=== PATIENT | female | born 1980 ===

== ENCOUNTER → 2016-11-11 20:08 | Observation (INO) ==
[2016-11-11 18:13] LABS: Basophils % 0.2 %; Eosinophils # 0.2 K/mcL (0.0-0.6); Eosinophils % 1.6 %; Hematocrit 35.7 % (35.3-44.9); Hemoglobin 11.7 g/dL (11.5-15.4); Lymphocytes # 2.2 K/mcL (0.6-4.6); Lymphocytes % 21.8 %; Mean Corpuscular HGB Conc 32.8 g/dL (31.6-35.5); Mean Corpuscular Hemoglobin 28.1 pg (28.0-33.3); Mean Corpuscular Volume 85.8 fL (83.0-100.0); Mean Platelet Volume 10.9 fL (9.4-12.4); Monocytes # 0.7 K/mcL (0.0-1.3); Monocytes % 6.4 %; Platelet Count 154 K/mcL (140-400); Red Blood Count 4.16 M/mcL (3.82-4.97); Red Cell Distribution Width 15.2 % (11.5-14.5)
[2016-11-11 18:34] LABS: Alanine Aminotransferase 15 Units/L (0-55); Aspartate Amino Transferase 15 Units/L (5-34); BUN/Creatinine Ratio 10 (6-26); Blood Urea Nitrogen 6 mg/dL (7-20); Lactate Dehydrogenase 158 Units/L (159-327); eGFR For African Americans > 60 (> 60); eGFR For Non-African Americans > 60 (> 60)
[2016-11-11 19:48] LABS: Creatinine,Urine 43 mg/dL; Protein/Creatinine Ratio,Urine 0.16 mg/mg (0-0.20)
[2016-11-11 19:49] LABS: Amphetamine Screen,Urine Negative ng/mL (Cutoff=1000); Barbiturate Screen,Urine Negative ng/mL (Cutoff=200); Benzodiazepines Screen,Urine Negative ng/mL (Cutoff=200); Cannabinoid Screen,Urine Negative ng/mL (Cutoff = 50); Cocaine Screen,Urine Negative ng/mL (Cutoff= 300); Opiate Screen,Urine Negative ng/mL (Cutoff=300); Phencyclidine Screen,Urine Negative ng/mL (Cutoff=25)
--- NOTE | 2016-11-11 20:02 | OB/GYN Progress Note ---
Date of Encounter: 11/11/16 Time of Encounter: 20:00 - Assessment and Plan (1) 30 weeks gestation of Current Visit: Yes Status: Acute (2) Gestational hypertension Current Visit: Yes Status: Acute Labs WNL. BP's labile with the majority in mild range. Discharge home with precautions. Pt to picker tender labetalol rx and start tonight. POC per Dr. Beavers. Qualifiers: Trimester: third trimester Qualified Code(s): O13.3 - Gestational [ -induced] hypertension without significant proteinuria, third trimester Subjective - Subjective Interval history: 36 year-old presenting at 30w5d from office for elevated blood pressure. She denies MCKEON, vision changes, RUQ pain, or other complaints. Good FM. Antepartum ROS: movement normal, no loss of fluid, no vaginal bleeding, no contractions Objective - Vital Signs Vital Signs: Intake and Output 11/11/16 11/11/16 11/11/16 07:59 15:59 23:59 Other: Weight 102.7 kg Patient Weight 11/11/16 23:59 Weight 102.7 kg - Exam FHR: category 1 FHR comments: FHT reassuring for GA Abdomen: Present: soft, gravid. Absent: tenderness Uterus: Absent: tenderness Comments: Reflexes normal. - Labs Labs: Abnormal lab results RDW 15.2 % (11.5-14.5) H 11/11/16 18:00 BUN 6 mg/dL (7-20) L 11/11/16 18:00 Lactate Dehydrogenase 158 Units/L (159-327) L 11/11/16 18:00
== END | disposition home or self-care (01) ==
LOC: 1NENULAB
PROVIDERS: ADMIT Obstetrics & Gynecology; ATTEND Obstetrics & Gynecology

== ENCOUNTER 2016-12-30 11:13 | Inpatient (IN) ==
[2016-12-30 11:41] LABS: Basophils % 0.5 %; Eosinophils # 0.1 K/mcL (0.0-0.6); Hematocrit 35.5 % (35.3-44.9); Hemoglobin 11.9 g/dL (11.5-15.4); Immature Granulocytes % 0.6 % (0-4); Lymphocytes % 23.4 %; Mean Corpuscular HGB Conc 33.5 g/dL (31.6-35.5); Mean Corpuscular Hemoglobin 28.9 pg (28.0-33.3); Mean Corpuscular Volume 86.2 fL (83.0-100.0); Monocytes # 0.5 K/mcL (0.0-1.3); Monocytes % 6.2 %; Neutrophils # 5.9 K/mcL (1.6-8.9); Platelet Count 146 K/mcL (140-400); Red Blood Count 4.12 M/mcL (3.82-4.97); Red Cell Distribution Width 14.2 % (11.5-14.5); Segmented Neutrophils % 68.3 %
[2016-12-30 11:42] LABS: Bilirubin,Urine Negative (Negative); Blood,Urine Negative (Negative); Clarity,Urine Cloudy (Clear); Color,Urine Yellow (Yellow); Glucose,Urine (UA) Normal (Normal); Ketones,Urine Negative (Negative); Leukocyte Esterase,Urine Trace (Negative); Nitrite,Urine Negative (Negative); PH,Urine 6.5 pH Units (5.0-8.0); Protein,Urine Negative (Neg-Trace); Urobilinogen,Urine Normal (Normal)
[2016-12-30 11:44] LABS: Bacteria,Urine Few per hpf (None-Few); Hyaline Casts,Urine None Seen per lpf (None-Few); RBC,Urine 0-3 per hpf (0-3); Squamous Epithelial Cell,Urine Many per lpf (None-Few)
[2016-12-30 11:57] LABS: Alanine Aminotransferase 11 Units/L (0-55); Aspartate Amino Transferase 17 Units/L (5-34); BUN/Creatinine Ratio 9 (6-26); Blood Urea Nitrogen 5 mg/dL (7-20); Lactate Dehydrogenase 190 Units/L (159-327); Uric Acid 4.8 mg/dL (2.6-6.0); eGFR For African Americans > 60 (> 60); eGFR For Non-African Americans > 60 (> 60)
[2016-12-30] MEDS ORDERED: *HR* Labetalol 20 MG/4 ML SYRINGE IVP ONE ×3 (12:11→13:01)
[2016-12-30] MEDS ORDERED: Ringers Solution, Lactated 1,000 ML ONE (12:15)
--- NOTE | 2016-12-30 12:26 | OB/GYN History & Physical ---
Date of Encounter: 12/30/16 Time of Encounter: 12:19 Assessment and Plan (1) Gestational hypertension Current visit: No Status: Acute Prolonged monitoring PIH labs - wnl Urine protein creatinine ratio - pending NST - reactive Serial blood pressures - elevated. Will start IV labetalol per ACOG recommendations. Admit for IOL vs stabilize and discharge with increase antihypertensives POC per consult with Dr Gonzalez. Qualifiers: Trimester: third trimester Qualified Code(s): O13.3 - Gestational [ -induced] hypertension without significant proteinuria, third trimester (2) 37 weeks gestation of Current visit: Yes Status: Acute History of Present Illness Chief complaint: Elevated blood pressure HPI: Ms. Gonzalez is a 36 year old at 37 weeks 5 days gestation that presents from the office to labor and delivery for a gestational hypertension evaluation. Her blood pressure in the office was 146/92 followed by 168/96. She denies headache, vision changes, and epigastric pain. She states good movement. She denies leaking of fluid, pain, vaginal bleeding, cramping, and contractions. She does have a history of gestational hypertension with good control until today on labetalol 200mg TID po. She has been taking her labetalol as scheduled. She is also of advanced maternal age. She had a leep procedure completed on her cervix in December of 2015. She has no other risk factors with this . Labs: GBS negative Blood type A+ Antibody negative Hep B nonreactive Rubella immune Varicella immune RPR negative HIV negative Past Med Surg Social Fam HX - Past Medical History Medical history: no medical history Psychiatric history: anxiety - Past Surgical History Surgical History: other - Social History Smoking Status: Never smoker Smokeless Tobacco Status: No Alcohol use: none Drug use: none - Family History Mother History Unknown: Yes Living Status: Still Living Hx Family Endocrine Disorder: Yes (diabetes) Obstetrical History - Pregnancies : 3 Para: 2 Term: 2 : 0 Ab's: 0 Livin Medications and Allergies Labetalol [Trandate] 200 mg PO TID 11/11/16 [History] Vit Calc,Iron,Folic [ Vitamins] 1 tab PO DAILY 11/11/16 [ History] Sertraline [Zoloft] 50 mg PO DAILY 11/11/16 [History] metFORMIN [Glucophage] 500 mg PO BIDWM 11/11/16 [History] 3 Allergy/AdvReac Type Severity Reaction Status Date / Time No Known Allergies Allergy Verified 11/11/16 17:58 Review of System OB All systems PM: reviewed and no additional remarkable complaints except as stated Exam - Constitutional Constitutional: well developed, well nourished, no acute distress - HEENT HEENT: Normocephaly, Mucus Membranes Moist - Lungs Respiratory exam: CTAB - Cardiovascular Cardiovascular exam: RRR, +S1, +S2 - Abdomen Abdomen: Present: bowel sounds normal, gravid, non tender - Extremities Extremities exam: normal capillary refill, normal inspection, radial pulses palpable and symmetrical Deep Tendon Reflex Grade: 3+ Normal But Brisk - Cervix Dilation: 3 (3-4 Per exam in office) Effacement: 90 Station: -1 - Uterus Uterus exam: Present: normal size, normal contour - Comments Comments: FHTs 130's category I tracing. No contractions per toco/patient report/ monitor. Results Result Diagrams: 12/30/16 11:30 12/30/16 11:30 Abnormal lab results BUN 5 mg/dL (7-20) L 12/30/16 11:30 Urine Clarity Cloudy (Clear) A 12/30/16 11:30 Ur Leukocyte Esterase Trace (Negative) H 12/30/16 11:30 Urine Microscopic WBC 5-15 per hpf (0-3) H 12/30/16 11:30 Ur Squamous Epith Cells Many per lpf (None-Few) H 12/30/16 11:30 All other labs normal. - VTE Reasons for not Prescribing Prophylaxis: Treatment not Indicated - Low risk for VTE
[2016-12-30 12:28] LABS: Amphetamine Screen,Urine Negative ng/mL (Cutoff=1000); Barbiturate Screen,Urine Negative ng/mL (Cutoff=200); Benzodiazepines Screen,Urine Negative ng/mL (Cutoff=200); Cannabinoid Screen,Urine Negative ng/mL (Cutoff = 50); Cocaine Screen,Urine Negative ng/mL (Cutoff= 300); Opiate Screen,Urine Negative ng/mL (Cutoff=300); Phencyclidine Screen,Urine Negative ng/mL (Cutoff=25)
[2016-12-30] MEDS: Ringers Solution, Lactated 1,000 ML IVC SCH ×2 (12:29→18:32)
[2016-12-30 12:46] LABS: Protein/Creatinine Ratio,Urine 0.25 mg/mg (0-0.20)
[2016-12-30] MEDS: *HR* Labetalol 20 MG/4 ML SYRINGE IVP ONE (13:02)
[2016-12-30] MEDS ORDERED: Oxytocin 20 units/ LR 1000 mL 20 UNIT/1,000 ML BAG IVC SCH (15:45)
[2016-12-30] MEDS ORDERED: Magnesium Sulfate 20 gm/500mL 20 GM/500 ML IV.SOLN IVC SCH (15:45)
[2016-12-30] MEDS ORDERED: Epidural Premix (fent/bupiv) 110 ML EP ONE ×2 (17:49→23:19)
[2016-12-30] MEDS ORDERED: Epidural Premix (fent/bupiv) 110 ML EP SCH (18:00)
--- NOTE | 2016-12-30 18:24 | Anesthesia Evaluation PreOp ---
Date of Encounter: 12/30/16 Time of Encounter: 18:22 - Past History Planned Operation: LUAN Cardiac History: Other (PIH on labetalol) Pulmonary History: Denies Any Significant HX INDIRECT SALES REPRESENTATIVE History: Denies Any Significant HX Other Medical History: Other (back pain and back "locking up") Anesthesia History: No Prior Anesthetic Complications Alcohol Use: none Drug use: none Medications and Allergies Labetalol [Trandate] 200 mg PO TID 11/11/16 [History] Vit Calc,Iron,Folic [ Vitamins] 1 tab PO DAILY 11/11/16 [ History] Sertraline [Zoloft] 50 mg PO DAILY 11/11/16 [History] metFORMIN [Glucophage] 500 mg PO BIDWM 11/11/16 [History] 3 Allergy/AdvReac Type Severity Reaction Status Date / Time No Known Allergies Allergy Verified 11/11/16 17:58 - Meds/Allergy Pre-op Review Medications Reviewed: Yes Allergies Reviewed: Yes Beta Blockers on Current Med List: Yes If Beta Blockers taken, Date/Time (Last Dose taken): 12/30 1344 Anesthesia Results - Labs 12/30/16 11:30 12/30/16 11:30 Anesthesia Exam Height: 1.75m Weight: 105kg NPO (# of Hours): 3 Pain Scale: 8 Pain Scale Used: Numeric (1 - 10) - HEENT Pupil (Motor): Pupils equal Mallampati: II Teeth: Normal Oral Opening: Greater than 3 - INDIRECT SALES REPRESENTATIVE LOC: Oriented INDIRECT SALES REPRESENTATIVE Motor: Normal RUE, Normal LUE, Normal RLE, Normal LLE, Normal Face INDIRECT SALES REPRESENTATIVE Sensory: Normal: RUE, LUE, RLE, LLE, Face - Cardiac Rhythm: Regular Murmur: None JVD: No Carotid Bruit: No - Pulmonary Breath Sounds: bilateral Clear Respiratory Effort: Symmetrical Anesthesia Assess/Plan ASA Score: 2 Modified Renetta Scale for Level of Consciousness: Cooperative, oriented, and tranquil Anesthetic Plan: General (plan b), Regional (plan a) Autologous Blood: Yes Monitoring Plan: Standard Monitors
--- NOTE | 2016-12-30 18:26 | Anesthesia Procedures ---
Date of Encounter: 12/30/16 Time of Encounter: 18:24 Procedures: Anesthesia - Epidural/Spinal Patient ID/Chart reviewed: Yes Patient examined: Yes OB Eval: Gestational age: 37.5 OB Eval: : 3 OB Eval: Hx Para: 2 OB Eval: Dilated at (cm): 3 OB Eval: Contractions: Non-stressed pattern Consent Obtained: Yes Supplemental Oxygen: None/Room Air Site Prep: Aseptic Technique, Sterile prep and drape, Povidone-Iodine 1% Patient position: upright Local Anesthetic: Lidocaine 1% Amount of Local Anesthetic used: 3 Touhy Needle Gauge: 18 Touhy Needle Depth (cm): 9 Catheter Depth at Skin (cm): 19 Test Dose (1.5% Lido + Epi): Volume given (mls): 5 Test Dose Result: Negative Loading Dose: Other: 10mls of epidural pharm bag premix solution Loading Dose Administered: Thru Catheter Infusion Med: 0.125% Bupivacaine w/ 2 mcg/ml Fentanyl Infusion Rate (mls/hr): 16 ([id number]) Catheter Secured in Place: Tegaderm, Tape Interspace Used: L3-L4 Loss of Resistance (PRINCESS): Yes Blood: No CSF: No Paresthesia: No Procedure: pt tolerated procedure well. no complications. vss. fhr stable. see qs for complete vitals. 162/87 hr 62 147/83 hr 66 fhr 140
[2016-12-30] MEDS ORDERED: Famotidine 20 MG/2 ML VIAL IVP PRN (19:27)
[2016-12-30] MEDS ORDERED: Acetaminophen 325 MG TABLET PO ONE (22:03)
--- NOTE | 2016-12-30 23:04 | OB Labor Progress Note ---
Date of Encounter: 12/30/16 Time of Encounter: 23:03 Labor Progress Note - Subjective Subjective: Pt comfortable with epidural. No MCKEON's. - Cervix Cervix: 490/-1 - Heart Tones Heart Tones: RNST - [place]: us's q 2 min - Plan Plan: RNST
--- NOTE | 2016-12-31 02:08 | OB/GYN Procedure Note ---
Delivery - Delivery Date: 12/31/16 Provider: Terrell Gonzalez Delivery induction: oxytocin Delivery monitor: external FHT, external uterine Anesthesia: epidural Estimated Blood Loss: 400 - Infant (s) A Infant Delivery Date: 12/31/16 Delivery Time: 01:16 Position: GARRET Route of delivery: Viability: Viable Pounds: 7 Ounces: 7 at 1 minute: 5 at 5 mins: 8 Shoulder Dystocia: not encountered Placenta: spontaneous Cord: 3 umbilical vessels - Repair Episiotomy: none Laceration Description: Perineal - 2nd Degree - Complications Delivery complications: none, other (Retained membranes) - Disposition Mom disposition: stable in LDR [place] disposition: stable in LDR - Comments Comments: Pt s/p without complications. 2nd degree laceration repaired with 3-0 Vicryl. Placenta delivered spontaneously though she did have some retained membranes that were manuallly extrated. Bimanual exam revealed no further membranes.
[2016-12-31] MEDS ORDERED: Rho Immune Globulin 1,500 UNIT SYRINGE IM PRN (02:36)
[2016-12-31] MEDS ORDERED: Oxytocin 20 units/ LR 1000 mL 20 UNIT/1,000 ML BAG IVC SCH (02:36)
[2016-12-31] MEDS ORDERED: Measles/Mumps/Rubella Vacc 0.5 ML VIAL SQ PRN (02:36)
[2016-12-31] MEDS: Magnesium Sulfate 20 gm/500mL 20 GM/500 ML IV.SOLN IVC SCH ×2 (05:00→14:04)
[2016-12-31] MEDS: Ringers Solution, Lactated 1,000 ML IVC SCH (05:48)
[2016-12-31] MEDS ORDERED: Calcium Gluconate 1,000 MG/10 ML VIAL IVPB ONE (06:01)
[2016-12-31] MEDS ORDERED: Ringers Solution, Lactated 1,000 ML ONE (07:32)
[2016-12-31] MEDS: Prenatal Vit/FA 1 EACH TABLET PO SCH (08:19)
[2016-12-31] MEDS: Acetaminophen 325 MG TABLET PO PRN (21:18)
[2017-01-01 04:28] LABS: Basophils # 0.1 K/mcL (0.0-0.2); Basophils % 0.5 %; Hematocrit 30.2 % (35.3-44.9); Immature Granulocytes % 0.4 % (0-4)
[2017-01-01 04:32] LABS: Alanine Aminotransferase 11 Units/L (0-55); Aspartate Amino Transferase 17 Units/L (5-34); BUN/Creatinine Ratio 8 (6-26); Lactate Dehydrogenase 241 Units/L (159-327); Uric Acid 5.3 mg/dL (2.6-6.0); eGFR For African Americans > 60 (> 60); eGFR For Non-African Americans > 60 (> 60)
[2017-01-01 04:33] LABS: Eosinophils # 0.2 K/mcL (0.0-0.6); Eosinophils % 1.8 %; Hemoglobin 10.3 g/dL (11.5-15.4); Immature Platelets 9.3 % (1.1-6.1); Lymphocytes # 2.7 K/mcL (0.6-4.6); Lymphocytes % 25.6 %; Mean Corpuscular HGB Conc 34.1 g/dL (31.6-35.5); Mean Corpuscular Hemoglobin 29.9 pg (28.0-33.3); Mean Corpuscular Volume 87.5 fL (83.0-100.0); Mean Platelet Volume 11.6 fL (9.4-12.4); Monocytes # 0.6 K/mcL (0.0-1.3); Monocytes % 5.4 %; Neutrophils # 7.1 K/mcL (1.6-8.9); Platelet Count 187 K/mcL (140-400); Red Blood Count 3.45 M/mcL (3.82-4.97); Red Cell Distribution Width 14.5 % (11.5-14.5); Segmented Neutrophils % 66.3 %
[2017-01-01 04:35] LABS: Blood Urea Nitrogen 4 mg/dL (7-20)
[2017-01-01] MEDS: Prenatal Vit/FA 1 EACH TABLET PO SCH (07:56)
[2017-01-01] MEDS: Acetaminophen 325 MG TABLET PO PRN ×3 (07:57→21:11)
--- NOTE | 2017-01-01 09:43 | OB/GYN Progress Note ---
Date of Encounter: 01/01/17 Time of Encounter: 09:30 - Assessment and Plan (1) Status post vaginal delivery Current Visit: Yes Status: Acute (2) Gestational hypertension Current Visit: Yes Status: Acute Patient's BP earlier today was 181/112. She was given her scheduled dose of labetalol and her BP dropped to 162/95. - Will administer an additional 100mg labetalol now and continue to monitor BP. - Continue scheduled labetalol. Qualifiers: Trimester: third trimester Qualified Code(s): O13.3 - Gestational [ -induced] hypertension without significant proteinuria, third trimester (3) Anxiety Current Visit: Yes Status: Chronic - Continue zoloft. Subjective - Subjective Principal diagnosis: gestational HTN, s/p vaginal delivery Interval history: Patient says that she is doing well and in good mood. She is currently breast and bottle feeding the baby. She has been able to ambulate well. No bowel movement yet but she has been able to pas gas. She has been able to void. She says her vaginal bleeding has been light to moderate and has been improving since the delivery. She denies any MCKEON, vision changes, fever, chills, SOB, chest pain, nausea, or vomiting. Patient reports: appetite normal, voiding normally, pain well controlled, ambulating normally [place]: doing well, nursing well, bottle feeding Objective - Latest Vital Signs Latest vital signs: Vital Signs Temp Pulse Resp BP Pulse Ox 01/01/17 09:13 162/95 01/01/17 08:03 98.3 F 66 16 181/112 95 01/01/17 04:05 97.6 F 73 14 164/92 96 01/01/17 01:10 65 16 163/85 01/01/17 01:00 97.9 F 71 14 159/81 97 01/01/17 00:02 70 16 160/100 12/31/16 23:05 68 14 146/88 12/31/16 23:00 97.8 F 69 16 156/85 98 12/31/16 22:15 68 146/88 12/31/16 22:10 69 16 148/91 12/31/16 21:10 71 16 166/91 12/31/16 21:05 65 16 167/96 12/31/16 20:00 68 16 146/82 98 12/31/16 19:05 98.0 F 67 16 154/80 97 12/31/16 19:00 98.0 F 73 16 156/97 97 12/31/16 18:12 74 16 148/89 12/31/16 17:20 67 18 164/95 12/31/16 16:30 64 18 159/92 12/31/16 15:07 69 18 172/98 12/31/16 15:04 69 18 172/98 12/31/16 14:05 68 16 154/89 12/31/16 13:11 64 16 142/86 12/31/16 12:06 64 16 153/88 Intake and Output 12/31/16 01/01/17 01/01/17 23:59 07:59 15:59 Intake Total 900 / 900 Output Total 1480 / 1480 370 / 370 Balance -1480 / -1480 530 / 530 Intake: IV Fluids 500 / 500 Magnesium Sulfate Premix 20 gm/ 500 / 500 500mL 20 gm In 500 ml @ 2 GM/HR 50 mls/hr IVC .Q10H SADIE Rx#: [id number] Oral 400 / 400 Output: Urine 1480 / 1480 370 / 370 - Exam Lungs: bilateral: normal Chest: Normal S1, Normal S2 Extremities: Present: normal. Absent: tenderness, edema Abdomen: Present: normal appearance, soft, gravid Uterus: Present: firm - Labs Labs: Laboratory Results - last 24 hr 01/01/17 01/01/17 03:54 03:54 WBC 10.7 RBC 3.45 L Hgb 10.3 L D Hct 30.2 L MCV 87.5 MCH 29.9 MCHC 34.1 RDW 14.5 Plt Count 187 MPV 11.6 Immature Gran % 0.4 Seg Neutrophils % 66.3 Lymphocytes % 25.6 Monocytes % 5.4 Eosinophils % 1.8 Basophils % 0.5 Neutrophils # 7.1 Lymphocytes # 2.7 Monocytes # 0.6 Eosinophils # 0.2 Basophils # 0.1 Immature Plt Fraction 9.3 H BUN 4 L Creatinine 0.51 L Est GFR ( Amer) > 60 Est GFR (Non-Af Amer) > 60 BUN/Creatinine Ratio 8 Uric Acid 5.3 AST 17 ALT 11 Lactate Dehydrogenase 241
[2017-01-01] MEDS: NIFEdipine XL (24 HR) 60 MG TAB.ER.24 PO SCH (13:32)
[2017-01-01] MEDS ORDERED: hydrALAZINE 25 MG TABLET PO ONE (17:45)
--- NOTE | 2017-01-01 17:50 | Internal Medicine Consult Note ---
<Luiz Corrales - Last Filed: 01/01/17 18:29> Date of Encounter: 01/01/17 Time of Encounter: 17:46 - Assessment and Plan (1) hypertension Current Visit: Yes Status: Acute Assessment and plan: Pt PIH labs pending Last LFT WNL Clinically low suspicion of evolving pre-ecclampsia Risk factors contributing to PIH: BMI>30, PCOS Continue Labetalol Continue Procardia XL Add Hydralazine 50mg PO one time stat, recheck and adjust antihypertensives in AM. Consider Lasix for mild volume overload, understand that patient wants to breastfeed. Pt agress to use Lasix if hydralazine does not reduce blood pressure readings. (2) Gestational hypertension Current Visit: Yes Status: Acute Assessment and plan: As above, persisting hypertension gestaionally through post- period. Qualifiers: Trimester: third trimester Qualified Code(s): O13.3 - Gestational [ -induced] hypertension without significant proteinuria, third trimester (3) Status post vaginal delivery Current Visit: Yes Status: Acute Assessment and plan: S/p , of baby girl Barbara Gonzalez. Internal Medicine - CN: HPI - Data of Consult Requesting Physician: Terrell Gonzalez MD - Consult Narrative Reason for consult: PIH/Post- Hypertension History of present illness: Ms. Gonzalez is a 36 year old female, , history of gestational hypertension, PCOS, no known CAD, no renal impairment, with chief complaint of persistent hypertension. Gestational hypertension was well-controlled throughout . Blood pressure readings remained elevated during active labor. Pt reports mild LE swelling. Pt denies headache, blurred vision, chest pain, shortness of breath, RUQ pain. Past Med Surg Social Fam HX - Past Medical History Medical history: no medical history Psychiatric history: anxiety - Past Surgical History Surgical History: other - Social History Smoking Status: Never smoker Smokeless Tobacco Status: No Alcohol use: none Drug use: none - Family History Mother History Unknown: Yes Living Status: Still Living Hx Family Endocrine Disorder: Yes (diabetes) - Cardiovascular Cardiovascular ROS IM: no chest pain, no dyspnea, no palpitations - Respiratory Respiratory: no dyspnea - Neurological Neurological ROS: no abnormal movements, no convulsions, no dizziness, no loss of vision, no vertigo, no other visual disturbances - Endocrine Endocrine IM: no flushing, no heat intolerance Internal Medicine - CN: Meds Labetalol [Trandate] 200 mg PO TID 11/11/16 [History] Vit Calc,Iron,Folic [ Vitamins] 1 tab PO DAILY 11/11/16 [ History] Sertraline [Zoloft] 50 mg PO DAILY 11/11/16 [History] metFORMIN [Glucophage] 500 mg PO BIDWM 11/11/16 [History] Breast Pump [BREAST PUMP] 1 each .ROUTE AD #1 each 01/01/17 [Rx] 3 Allergy/AdvReac Type Severity Reaction Status Date / Time No Known Allergies Allergy Verified 11/11/16 17:58 Internal Medicine - CN: Exam - Constitutional Vitals: Temp Pulse Resp BP Pulse Ox 98.3 F 66 16 176/100 95 01/01/17 08:03 01/01/17 08:03 01/01/17 08:03 01/01/17 17:00 01/01/17 08:03 General appearance IM: Present: A&O X 3, pleasant, no acute distress - Head Head exam: Present: atraumatic - Eye Eye exam: Present: EOMI - Respiratory Respiratory exam: Present: CTAB. Absent: respiratory distress - Cardiovascular Cardiovascular exam IM: Present: RRR, +S1, +S2 - GI/Abdominal Additional comments: no RUQ tenderness to palpation - Extremities Exam Additional comments: +1 pitting edema bilaterally - Neurological Exam Neurological exam: Present: oriented X3. Absent: facial droop, speech deficit Internal Medicine - CN: Reslt - Labs CBC & Chem 7: 01/01/17 03:54 01/01/17 03:54 Labs: Short CBC 01/01/17 Range/Units 03:54 WBC 10.7 (4.3-11.1) K/mcL Hgb 10.3 L D (11.5-15.4) g/dL Hct 30.2 L (35.3-44.9) % Plt Count 187 (140-400) K/mcL Neutrophils # 7.1 (1.6-8.9) K/mcL BMP 01/01/17 03:54 BUN 4 L Creatinine 0.51 L Liver Function 01/01/17 Range/Units 03:54 AST 17 (5-34) Units/L ALT 11 (0-55) Units/L Consult Discharge Plan - Plan Referrals: NONE,PCP [Primary Care Provider] - Prescriptions: Breast Pump [BREAST PUMP] 1 each .ROUTE AD #1 each <Kristian Martell - Last Filed: 01/01/17 19:03> Date of Encounter: 01/01/17 - Assessment and Plan (1) hypertension Current Visit: Yes Status: Acute Internal Medicine - CN: HPI - Data of Consult Requesting Physician: Terrell Gonzalez MD - Consult Narrative History of present illness: Ms. Gonzalez is a 36 year old female Internal Medicine - CN: Exam - Constitutional Vitals: Temp Pulse Resp BP Pulse Ox 98.3 F 66 16 176/100 95 01/01/17 08:03 01/01/17 08:03 01/01/17 08:03 01/01/17 17:00 01/01/17 08:03 Internal Medicine - CN: Reslt - Labs CBC & Chem 7: 01/01/17 03:54 01/01/17 03:54 Labs: Short CBC 01/01/17 Range/Units 03:54 WBC 10.7 (4.3-11.1) K/mcL Hgb 10.3 L D (11.5-15.4) g/dL Hct 30.2 L (35.3-44.9) % Plt Count 187 (140-400) K/mcL Neutrophils # 7.1 (1.6-8.9) K/mcL BMP 01/01/17 03:54 BUN 4 L Creatinine 0.51 L Liver Function 01/01/17 Range/Units 03:54 AST 17 (5-34) Units/L ALT 11 (0-55) Units/L - Attending Attestation I examined this patient and my medical decision-making was reviewed with the Resident Physician on 01/01/17. I agree with the documented findings, disposition and treatment plan as described except to the extent set forth below. 36 y/o female with HTN. Pt had HTN during but continues to be high despite treatment. No CP or SOB. No significant edema. No prior history. Exam Alert. Comfortable Heart reg Lungs clear Abd soft No significant edema I/P 1. HTN 2. Further diagnoses and plan as above.
[2017-01-02 06:46] LABS: Alanine Aminotransferase 13 Units/L (0-55); Aspartate Amino Transferase 16 Units/L (5-34); BUN/Creatinine Ratio 7 (6-26); Blood Urea Nitrogen 4 mg/dL (7-20); Lactate Dehydrogenase 224 Units/L (159-327); Uric Acid 4.9 mg/dL (2.6-6.0); eGFR For African Americans > 60 (> 60); eGFR For Non-African Americans > 60 (> 60)
[2017-01-02 07:00] LABS: Basophils # 0.1 K/mcL (0.0-0.2); Basophils % 0.6 %; Eosinophils # 0.3 K/mcL (0.0-0.6); Eosinophils % 2.7 %; Hemoglobin 10.7 g/dL (11.5-15.4); Immature Granulocytes % 0.6 % (0-4); Lymphocytes # 2.7 K/mcL (0.6-4.6); Mean Corpuscular HGB Conc 32.4 g/dL (31.6-35.5); Mean Corpuscular Volume 89.4 fL (83.0-100.0); Monocytes # 0.6 K/mcL (0.0-1.3); Monocytes % 5.8 %; Neutrophils # 7.1 K/mcL (1.6-8.9); Platelet Count 184 K/mcL (140-400); Red Blood Count 3.69 M/mcL (3.82-4.97); Red Cell Distribution Width 14.7 % (11.5-14.5); Segmented Neutrophils % 65.3 %
[2017-01-02] MEDS: Prenatal Vit/FA 1 EACH TABLET PO SCH (07:50)
[2017-01-02] MEDS: NIFEdipine XL (24 HR) 60 MG TAB.ER.24 PO SCH (07:51)
--- NOTE | 2017-01-02 08:26 | OB/GYN Progress Note ---
Date of Encounter: 01/02/17 Time of Encounter: 08:20 - Assessment and Plan (1) hypertension Current Visit: Yes Status: Acute (2) Status post vaginal delivery Current Visit: Yes Status: Acute will stop labetolol and try methyldopa if stable later today will discuss possible discharge Subjective - Subjective Interval history: patient without complaint this am no headache no scotoma no blurred vision, would like to go home, BP continues to be elevated, discussed stopping the Labetolol and switching to methyldopa, patient is also on Procardia 60XL and was given HCTZ yesterday, medicine had recommended lasix today if is elevated, I recommended not to do this since preeclamptics are volume restricted and lasix could actually make her BP worse, she has min edema at this time, Labs are all normal so recommended we try this other med and if BP stable through the day possible discharge later today Patient reports: appetite normal, voiding normally, pain well controlled, ambulating normally [place]: doing well Objective - Latest Vital Signs Latest vital signs: Vital Signs Temp Pulse Resp BP Pulse Ox 01/02/17 07:30 98.0 F 59 16 164/85 01/02/17 04:25 98.1 F 70 16 161/89 98 01/02/17 00:00 98.6 F 72 16 156/80 96 01/01/17 20:31 99.3 F 76 14 156/84 97 01/01/17 17:00 176/100 01/01/17 16:55 176/100 01/01/17 14:50 162/98 01/01/17 13:11 167/101 01/01/17 09:13 162/95 Intake and Output 01/01/17 01/02/17 01/02/17 23:59 07:59 15:59 Intake Total 500 / 500 1540 / 1540 Output Total 950 / 950 1999 / 1999 Balance -450 / -450 -460 / -460 Intake: Oral 500 / 500 1540 / 1540 Output: Urine 950 / 950 1999 Other: # Voids 3 Weight 99.11 kg Patient Weight 01/02/17 23:59 Weight 99.11 kg - Exam Lungs: bilateral: normal Chest: Normal S1, Normal S2 Extremities: Present: normal Abdomen: Present: normal appearance, soft Uterus: Present: normal, firm Uterus Position: 1 Finger Below Umbilicus - Labs Labs: Laboratory Results - last 24 hr 01/02/17 01/02/17 06:24 06:24 WBC 10.8 RBC 3.69 L Hgb 10.7 L Hct 33.0 L MCV 89.4 MCH 29.0 MCHC 32.4 RDW 14.7 H Plt Count 184 MPV 11.0 Immature Gran % 0.6 Seg Neutrophils % 65.3 Lymphocytes % 25.0 Monocytes % 5.8 Eosinophils % 2.7 Basophils % 0.6 Neutrophils # 7.1 Lymphocytes # 2.7 Monocytes # 0.6 Eosinophils # 0.3 Basophils # 0.1 BUN 4 L Creatinine 0.56 L Est GFR ( Amer) > 60 Est GFR (Non-Af Amer) > 60 BUN/Creatinine Ratio 7 Uric Acid 4.9 AST 16 ALT 13 Lactate Dehydrogenase 224
--- NOTE | 2017-01-02 13:01 | Internal Med Progress Note ---
<Luiz Corrales - Last Filed: 01/02/17 13:13> Date of Encounter: 01/02/17 Time of Encounter: 10:30 - Assessment and plan (1) hypertension Current Visit: Yes Status: Acute Assessment and plan: Since last encounter, 1 dose hydralazine 50mg given per consult, Methyldopa 500mg TID initiated by OB service, labetalol discontinued, Procardia XL continued. Pt expected to be discharged later tonight if BPs remain in fair control. Pt denies family hx depression, depression, anxiety. If she experiences any symptoms of depression, may consider switching Methyldopa to selective beta-blockade. Adjunct [facility], and, now that she is initiating ACEi are appropriate for patient. Pt has not experienced headaches after hydralazine administration last night, can use as well out-patient. Medicine will sign-off. Thank you for the consult. (2) Gestational hypertension Current Visit: Yes Status: Acute Assessment and plan: HTN management acutely as well as after discharge detailed as above. Qualifiers: Trimester: third trimester Qualified Code(s): O13.3 - Gestational [ -induced] hypertension without significant proteinuria, third trimester (3) Status post vaginal delivery Current Visit: Yes Status: Acute - Subjective Interval history: Nell continues to be asymptomatic, sitting comfortably at bedside. Lamar latching well, mother reports being able to breastfeed for a short duration. Denies headache, vision changes. No symptoms of anxiety or depression. - Constitutional Vitals: Temp Pulse Resp BP Pulse Ox 98.3 F 66 17 158/91 97 01/02/17 12:37 01/02/17 12:37 01/02/17 12:37 01/02/17 12:37 01/02/17 12:37 General appearance: Present: A&O X 3, pleasant, no acute distress - Head Head exam: Present: normal inspection - Neck Neck exam general surgery: Present: full ROM - Respiratory Respiratory exam: Present: CTAB - Cardiovascular Cardiovascular exam: Present: RRR, +S1, +S2. Absent: systolic murmur, tachycardia - Extremities Exam Extremities exam: Present: normal inspection Internal Medicine: Result - Labs CBC & Chem 7: 01/02/17 06:24 01/02/17 06:24 Labs: Short CBC 01/02/17 Range/Units 06:24 WBC 10.8 (4.3-11.1) K/mcL Hgb 10.7 L (11.5-15.4) g/dL Hct 33.0 L (35.3-44.9) % Plt Count 184 (140-400) K/mcL Neutrophils # 7.1 (1.6-8.9) K/mcL BMP 01/02/17 06:24 BUN 4 L Creatinine 0.56 L Liver Function 01/02/17 Range/Units 06:24 AST 16 (5-34) Units/L ALT 13 (0-55) Units/L - VTE Reasons for not Prescribing Prophylaxis: Treatment not Indicated - Low risk for VTE Consult Discharge Plan - Plan Referrals: NONE,PCP [Primary Care Provider] - Prescriptions: Breast Pump [BREAST PUMP] 1 each .ROUTE AD #1 each <Kristian Martell - Last Filed: 01/02/17 13:48> Date of Encounter: 01/02/17 - Assessment and plan (1) hypertension Current Visit: Yes Status: Acute - Constitutional Vitals: Temp Pulse Resp BP Pulse Ox 98.1 F 77 18 143/86 97 01/02/17 13:26 01/02/17 13:26 01/02/17 13:26 01/02/17 13:26 01/02/17 12:37 Internal Medicine: Result - Labs CBC & Chem 7: 01/02/17 06:24 01/02/17 06:24 Labs: Short CBC 01/02/17 Range/Units 06:24 WBC 10.8 (4.3-11.1) K/mcL Hgb 10.7 L (11.5-15.4) g/dL Hct 33.0 L (35.3-44.9) % Plt Count 184 (140-400) K/mcL Neutrophils # 7.1 (1.6-8.9) K/mcL BMP 01/02/17 06:24 BUN 4 L Creatinine 0.56 L Liver Function 01/02/17 Range/Units 06:24 AST 16 (5-34) Units/L ALT 13 (0-55) Units/L - Attending Attestation I examined this patient and my medical decision-making was reviewed with the Resident Physician. I agree with the documented findings, disposition and treatment plan as described except to the extent set forth below. Pt not seen today. To be discharged. Agree with recommendations as outlined above by Dr. Corrales. Should follow with PCP as well. This may be essential HTN.
[2017-01-02] MEDS ORDERED: Nitroglycerin 1 INCH/GM PACKET TP ONE (20:47)
[2017-01-03 08:51] VITALS: BP 153/93
--- NOTE | 2017-01-03 08:57 | Discharge Summary ---
Date of Encounter: 01/03/17 Time of Encounter: 08:58 - Discharge Diagnosis (1) Gestational hypertension Priority: Secondary Status: Acute Comments: BP's improved on Procardia XL 60 mg and Aldomet 500 TID. No s/sx's of precclampsia. Pt with strong desire to go home. Subjectively she looks very well. Pt plans to get home BP cuff and will call with elevated BP's. Will D/C home Qualifiers: Trimester: third trimester Qualified Code(s): O13.3 - Gestational [ -induced] hypertension without significant proteinuria, third trimester (2) Status post vaginal delivery Priority: Primary Status: Acute Comments: Doing well without c/o. (3) Anxiety Priority: Secondary Status: Chronic Comments: Pt worried and stressed about being in hospital, will D/c home. - Discharge Medications Prescriptions: Breast Pump [BREAST PUMP] 1 each .ROUTE AD #1 each Methyldopa [Aldomet] 500 mg PO TID #90 tablet NIFEdipine XL (24 HR) [Procardia XL] 60 mg PO DAILY #30 tab.er.24 Home Medications: Labetalol [Trandate] 200 mg PO TID 11/11/16 [History] Vit Calc,Iron,Folic [ Vitamins] 1 tab PO DAILY 11/11/16 [ History] Sertraline [Zoloft] 50 mg PO DAILY 11/11/16 [History] metFORMIN [Glucophage] 500 mg PO BIDWM 11/11/16 [History] Breast Pump [BREAST PUMP] 1 each .ROUTE AD #1 each 01/01/17 [Rx] Methyldopa [Aldomet] 500 mg PO TID #90 tablet 01/03/17 [Rx] NIFEdipine XL (24 HR) [Procardia XL] 60 mg PO DAILY #30 tab.er.24 01/03/17 [Rx] Allergies/Adverse Reactions: 3 Allergy/AdvReac Type Severity Reaction Status Date / Time No Known Allergies Allergy Verified 11/11/16 17:58 Data Procedures and tests throughout hospitalization: Laboratory Tests 12/30/16 12/30/16 12/30/16 11:30 11:30 11:30 WBC RBC Hgb Hct MCV MCH MCHC RDW Plt Count MPV Immature Gran % Seg Neutrophils % Lymphocytes % Monocytes % Eosinophils % Basophils % Neutrophils # Lymphocytes # Monocytes # Eosinophils # Basophils # Immature Plt Fraction BUN Creatinine Est GFR ( Amer) Est GFR (Non-Af Amer) BUN/Creatinine Ratio Uric Acid AST ALT Lactate Dehydrogenase Urine Color Yellow Urine Clarity Cloudy A Urine pH 6.5 Ur Specific [place] 1.010 Urine Protein Negative Urine Glucose (UA) Normal Urine Ketones Negative Urine Blood Negative Urine Nitrite Negative Urine Bilirubin Negative Urine Urobilinogen Normal Ur Leukocyte Esterase Trace H Urine Microscopic RBC 0-3 Urine Microscopic WBC 5-15 H Ur Squamous Epith Cells Many H Urine Bacteria Few Hyaline Casts None Seen Urine Creatinine 49 Protein/Creatinin Ratio 0.25 H Urine Total Protein 12 Urine Opiates Screen Negative Ur Barbiturates Screen Negative Ur Phencyclidine Scrn Negative Ur Amphetamines Screen Negative U Benzodiazepines Scrn Negative Urine Cocaine Screen Negative U Marijuana (THC) Screen Negative 12/30/16 12/30/16 01/01/17 11:30 11:30 03:54 WBC 8.7 10.7 RBC 4.12 3.45 L Hgb 11.9 10.3 L D Hct 35.5 30.2 L MCV 86.2 87.5 MCH 28.9 29.9 MCHC 33.5 34.1 RDW 14.2 14.5 Plt Count 146 187 MPV 11.0 11.6 Immature Gran % 0.6 0.4 Seg Neutrophils % 68.3 66.3 Lymphocytes % 23.4 25.6 Monocytes % 6.2 5.4 Eosinophils % 1.0 1.8 Basophils % 0.5 0.5 Neutrophils # 5.9 7.1 Lymphocytes # 2.0 2.7 Monocytes # 0.5 0.6 Eosinophils # 0.1 0.2 Basophils # 0.0 0.1 Immature Plt Fraction 9.3 H BUN 5 L Creatinine 0.57 Est GFR ( Amer) > 60 Est GFR (Non-Af Amer) > 60 BUN/Creatinine Ratio 9 Uric Acid 4.8 AST 17 ALT 11 Lactate Dehydrogenase 190 Urine Color Urine Clarity Urine pH Ur Specific [place] Urine Protein Urine Glucose (UA) Urine Ketones Urine Blood Urine Nitrite Urine Bilirubin Urine Urobilinogen Ur Leukocyte Esterase Urine Microscopic RBC Urine Microscopic WBC Ur Squamous Epith Cells Urine Bacteria Hyaline Casts Urine Creatinine Protein/Creatinin Ratio Urine Total Protein Urine Opiates Screen Ur Barbiturates Screen Ur Phencyclidine Scrn Ur Amphetamines Screen U Benzodiazepines Scrn Urine Cocaine Screen U Marijuana (THC) Screen 01/01/17 01/02/1717 03:54 06:24 06:24 WBC 10.8 RBC 3.69 L Hgb 10.7 L Hct 33.0 L MCV 89.4 MCH 29.0 MCHC 32.4 RDW 14.7 H Plt Count 184 MPV 11.0 Immature Gran % 0.6 Seg Neutrophils % 65.3 Lymphocytes % 25.0 Monocytes % 5.8 Eosinophils % 2.7 Basophils % 0.6 Neutrophils # 7.1 Lymphocytes # 2.7 Monocytes # 0.6 Eosinophils # 0.3 Basophils # 0.1 Immature Plt Fraction BUN 4 L 4 L Creatinine 0.51 L 0.56 L Est GFR ( Amer) > 60 > 60 Est GFR (Non-Af Amer) > 60 > 60 BUN/Creatinine Ratio 8 7 Uric Acid 5.3 4.9 AST 17 16 ALT 11 13 Lactate Dehydrogenase 241 224 Urine Color Urine Clarity Urine pH Ur Specific [place] Urine Protein Urine Glucose (UA) Urine Ketones Urine Blood Urine Nitrite Urine Bilirubin Urine Urobilinogen Ur Leukocyte Esterase Urine Microscopic RBC Urine Microscopic WBC Ur Squamous Epith Cells Urine Bacteria Hyaline Casts Urine Creatinine Protein/Creatinin Ratio Urine Total Protein Urine Opiates Screen Ur Barbiturates Screen Ur Phencyclidine Scrn Ur Amphetamines Screen U Benzodiazepines Scrn Urine Cocaine Screen U Marijuana (THC) Screen - Impressions Pt doing well without c/o. Minimal pain, stressed out b/c of still being in hospital. No MCKEON, No RUQ pain, No significant edema. Voiding well. going well. Date of admission: 12/30/16 11:13 Primary care physician: PCP NONE Consults: 12/31/16 02:36 Consult to Manager Fire [CONS] Routine Comment: Vaginal delivery, consult needed 01/01/17 16:57 Consult to Hospitalist [CONS] Stat Consulting Provider: Hospitalist [facility] Reason for Consult: severe HTN, on Labetalol and procardia with worsening pressures Call Completed: Yes - Patient Status Disposition: Home, Self-Care Condition: Good Functional capacity at discharge: independent ambulation Overall status at discharge: patient is progressing back to baseline - Discharge Instructions Follow Up With: Terrell Gonzalez MD [Partnered Physician] - - Diet and Activity Activity: increase activity as tolerated Diet: advance to your usual diet Hospital Course FINANCE AND ADMINISTRATION MANAGER Time Attestation: Total time spent providing and/or coordinating discharge services: Exam - Constitutional Vitals: Temp Pulse Resp BP Pulse Ox 97.6 F 93 20 153/93 97 01/03/17 08:05 01/03/17 08:05 01/03/17 08:05 01/03/17 08:05 01/03/17 08:05 General appearance IM: A&O X 3 - Respiratory Respiratory exam: Present: CTAB - Cardiovascular Cardiovascular exam IM: Present: RRR - GI/Abdominal GI/Abdominal exam IM: normal bowel sounds - Uterus Position: 2 Fingers Below Umbilicus - Extremities Exam Extremities exam IM: Present: full ROM - Neurological Exam Neurological exam: oriented X3 - VTE Reasons for not Prescribing Prophylaxis: Treatment not Indicated - Low risk for VTE
--- NOTE | 2017-01-03 09:14 | Discharge Summary ---
Outpatient Proc Discharge Plan - Plan Prescriptions: Breast Pump [BREAST PUMP] 1 each .ROUTE AD #1 each Methyldopa [Aldomet] 500 mg PO TID #90 tablet NIFEdipine XL (24 HR) [Procardia XL] 60 mg PO DAILY #30 tab.er.24 Home Medications: Labetalol [Trandate] 200 mg PO TID 11/11/16 [History] Vit Calc,Iron,Folic [ Vitamins] 1 tab PO DAILY 11/11/16 [ History] Sertraline [Zoloft] 50 mg PO DAILY 11/11/16 [History] metFORMIN [Glucophage] 500 mg PO BIDWM 11/11/16 [History] Breast Pump [BREAST PUMP] 1 each .ROUTE AD #1 each 01/01/17 [Rx] Methyldopa [Aldomet] 500 mg PO TID #90 tablet 01/03/17 [Rx] NIFEdipine XL (24 HR) [Procardia XL] 60 mg PO DAILY #30 tab.er.24 01/03/17 [Rx]
--- NOTE | 2017-01-03 09:17 | Discharge Summary ---
Outpatient Proc Discharge Plan - Plan Prescriptions: Breast Pump [BREAST PUMP] 1 each .ROUTE AD #1 each Breast Pump [BREAST PUMP] 1 each .ROUTE AD #1 each Methyldopa [Aldomet] 500 mg PO TID #90 tablet NIFEdipine XL (24 HR) [Procardia XL] 60 mg PO DAILY #30 tab.er.24 Home Medications: Labetalol [Trandate] 200 mg PO TID 11/11/16 [History] Vit Calc,Iron,Folic [ Vitamins] 1 tab PO DAILY 11/11/16 [ History] Sertraline [Zoloft] 50 mg PO DAILY 11/11/16 [History] metFORMIN [Glucophage] 500 mg PO BIDWM 11/11/16 [History] Breast Pump [BREAST PUMP] 1 each .ROUTE AD #1 each 01/01/17 [Rx] Breast Pump [BREAST PUMP] 1 each .ROUTE AD #1 each 01/03/17 [Rx] Methyldopa [Aldomet] 500 mg PO TID #90 tablet 01/03/17 [Rx] NIFEdipine XL (24 HR) [Procardia XL] 60 mg PO DAILY #30 tab.er.24 01/03/17 [Rx]
[2017-01-03] MEDS: NIFEdipine XL (24 HR) 60 MG TAB.ER.24 PO SCH (09:27)
[2017-01-03] MEDS: Prenatal Vit/FA 1 EACH TABLET PO SCH (09:35)
== END 2017-01-03 11:20 | disposition home or self-care (01) | DRG 774 ==
LOC: 1NENULAB → OBSVTOIN 11:13 → 1NENULAB 18:37 → 1NENUOBS 12-31 04:31
PROVIDERS: ADMIT Obstetrics & Gynecology; ATTEND Obstetrics & Gynecology